=== PATIENT | female | born 1950 | race Caucasian/White ===

== ENCOUNTER 2017-01-22 18:42 | Emergency (ER) | payer MEDICARE, MEDICAID ==
[~2017-01-22] VITALS: Ht 167.6 cm; Wt 84.6 kg
[~2017-01-22 18:42] MED LIST: ASPI-482 PO; ASPI-612 PO; ATOR10TA PO; ATOR10TA60 PO; BUPR100T8 PO; CEFP200T PO; DARB10SY IJ; FAMO20TA5 PO; FURO-68 PO; HEPA100D36 SQ; INSU100C SQ; INSU100I13 SQ; IPRA3AMP NEB; LACT1CAP8 PO; LEVO175T2 PO; LISI-338 PO; LISI10TA2 PO; LISI5TAB PO; LORA0.5T PO; MELA3TAB2 PO; METO25TA4 PO; Metoprolol Tartrate PO; OMEG1CAP6 PO; ONDA4TAB12 PO; POTA20TA12 PO; VITA1TAB19 PO
--- NOTE | 2017-01-22 18:45 | PHYS DOC ---
Past Medical History Past Medical History: Arthritis, Dementia, Diabetes-Type II, Hypothyroid Additional Past Medical Histor: diabetic neuropathy, chronic kidney disease, metabolic encephalopathy, Past Surgical History: Other Additional Past Surgical Histo: PEG tube in place Alcohol Use: None Drug Use: None Adult General HPI HPI Patient is a 66 year old female presenting to the emergency department for sudden onset headache 1 hour prior to arrival while she was at dialysis. 10 out of 10 headache at the top of her head but denies any associated nausea vomiting vision changes unilateral weakness numbness tingling. She says this is not the worst headache of her life and she does get headaches but this was sudden onset and severe. Patient is nontoxic-appearing and said that her whole dialysis session was not finished. Review of Systems Review of Systems Constitutional: Denies fever or chills [] Eyes: Denies change in visual acuity, redness, or eye pain [] HENT: Denies nasal congestion or sore throat [] Respiratory: Denies cough or shortness of breath [] Cardiovascular: No additional information not addressed in HPI [] GI: Denies abdominal pain, nausea, vomiting, bloody stools or diarrhea [] : Denies dysuria or hematuria [] Musculoskeletal: Denies back pain or joint pain [] Integument: Denies rash or skin lesions [] Neurologic: + headache. No focal weakness or sensory changes [] Current Medications Current Medications Current Medications Medications (Trade) Dose Ordered Sig/Brock Start Time Stop Time Status Last Admin Dose Admin Diphenhydramine HCl (Benadryl) 25 mg 1X ONCE 01/22/17 19:00 01/22/17 19:01 DC 01/22/17 20:04 25 MG Fentanyl Citrate (Fentanyl 2ml Vial) 50 mcg 1X ONCE 01/22/17 19:00 01/22/17 19:01 DC 01/22/17 20:04 50 MCG Prochlorperazine Edisylate (Compazine) 5 mg 1X ONCE 01/22/17 19:00 01/22/17 19:01 DC 01/22/17 20:03 5 MG Allergies Allergies Allergies Coded Allergies Type Severity Reaction Last Updated Verified penicillin Allergy Severe Swelling 04/22/16 Yes Sulfa (Sulfonamide Antibiotics) Allergy Intermediate 04/22/16 Yes codeine Allergy Intermediate Nausea and Vomiting 04/22/16 Yes I S O L A T I O N *CONTACT* Allergy Unknown 05/27/16 Yes Physical Exam Physical Exam Constitutional: Well developed, well nourished, no acute distress, non-toxic appearance. [] HENT: Normocephalic, atraumatic, bilateral external ears normal, oropharynx moist, no oral exudates, nose normal. [] Eyes: PERRLA, EOMI, conjunctiva normal, no discharge. [] Neck: Normal range of motion, no tenderness, supple, no stridor. [] Cardiovascular:Heart rate regular rhythm, no murmur [] Lungs & Thorax: Bilateral breath sounds clear to auscultation [] Abdomen: Bowel sounds normal, soft, no tenderness, no masses, no pulsatile masses. [] Skin: Warm, dry, no erythema, no rash. [] Back: No tenderness, no CVA tenderness. [] Extremities: No tenderness, no cyanosis, no clubbing, ROM intact, no edema. [] Neurologic: Alert and oriented X 3, normal motor function, normal sensory function, no focal deficits noted. [] Current Patient Data Vital Signs Vital Signs Date Time Temp Pulse Resp B/P (MAP) Pulse Ox O2 Delivery O2 Flow Rate FiO2 01/22/17 20:04 22 01/22/17 19:47 60 202/77 (118) 100 Room Air 01/22/17 18:52 98.4 98.4 Lab Values Laboratory Tests Test 01/22/17 19:10 White Blood Count 10.7 x10^3/uL (4.0-11.0) Red Blood Count 4.40 x10^6/uL (3.50-5.40) Hemoglobin 12.6 g/dL (12.0-15.5) Hematocrit 38.0 % (36.0-47.0) Mean Corpuscular Volume 86 fL (79-100) Mean Corpuscular Hemoglobin 29 pg (25-35) Mean Corpuscular Hemoglobin Concent 33 g/dL (31-37) Red Cell Distribution Width 15.6 % (11.5-14.5) H Platelet Count 258 x10^3/uL (140-400) Neutrophils (%) (Auto) 53 % (31-73) Lymphocytes (%) (Auto) 29 % (24-48) Monocytes (%) (Auto) 10 % (0-9) H Eosinophils (%) (Auto) 7 % (0-3) H Basophils (%) (Auto) 1 % (0-3) Neutrophils # (Auto) 5.6 x10^3uL (1.8-7.7) Lymphocytes # (Auto) 3.1 x10^3/uL (1.0-4.8) Monocytes # (Auto) 1.1 x10^3/uL (0.0-1.1) Eosinophils # (Auto) 0.7 x10^3/uL (0.0-0.7) Basophils # (Auto) 0.1 x10^3/uL (0.0-0.2) Sodium Level 137 mmol/L (136-145) Potassium Level 3.7 mmol/L (3.5-5.1) Chloride Level 100 mmol/L (98-107) Carbon Dioxide Level 29 mmol/L (21-32) Anion Gap 8 (6-14) Blood Urea Nitrogen 10 mg/dL (7-20) Creatinine 1.9 mg/dL (0.6-1.0) H Estimated GFR (Cockcroft-Gault) 26.3 BUN/Creatinine Ratio 5 (6-20) L Glucose Level 195 mg/dL (70-99) H Calcium Level 8.4 mg/dL (8.5-10.1) L Magnesium Level 1.7 mg/dL (1.8-2.4) L Total Bilirubin 0.3 mg/dL (0.2-1.0) Aspartate Amino Transferase (AST) 17 U/L (15-37) Alanine Aminotransferase (ALT) 10 U/L (14-59) L Alkaline Phosphatase 116 U/L (46-116) Total Protein 6.4 g/dL (6.4-8.2) Albumin 2.6 g/dL (3.4-5.0) L Albumin/Globulin Ratio 0.7 (1.0-1.7) L Laboratory Tests 01/22/17 19:10 Laboratory Tests 01/22/17 19:10 EKG EKG [] Radiology/Procedures Radiology/Procedures CT HEAD WO CONTRAST History: Sudden onset headache one hour prior to arrival Comparison: May 27, 2016 Technique: Noncontrast [address] images were acquired from the skull base to the vertex. Exposure: One or more of the following individualized dose reduction techniques were utilized for this examination: 1. Automated exposure control 2. Adjustment of the mA and/or kV according to patient size 3. Use of iterative reconstruction technique. Findings: No acute extra-axial or parenchymal hemorrhage is identified. There is no significant intra-axial mass effect, midline shift, or extra-axial fluid collection. The xavier-white differentiation of the major vascular territories is preserved. Ventricular size is stable, proportionate to the sulcal spaces. There is again [id number] supratentorial atrophy. There is again multifocal at least moderate ill-defined low-density of the supratentorial white matter bilaterally. There is again incomplete unification of the posterior arch of C1. The mastoid air cells and the visualized paranasal sinuses are aerated. No acute calvarial abnormality is identified. Impression: 1. No acute intracranial abnormality is identified. 2. There is again generalized supratentorial atrophy. There is again ill-defined low-density of the supratentorial white matter bilaterally probably due to chronic microvascular ischemic disease. 3. Note is again made of incomplete indication of the posterior arch of C1. Electronically signed by: Choco Lugo MD (01/22/2017 8:43 PM) [facility] DICTATED and SIGNED BY: CHOCO LUGO MD DATE: 01/22/172040 Course & Med Decision Making Course & Med Decision Making I strongly recommended doing a lumbar puncture given her classic story for subarachnoid hemorrhage. Patient adamantly refused stating that these hurt and that she will not allow me to do it. I explained why need to do the test to rule out a life-threatening emergency and she verbalizes understanding and accepted the risks of and disability by not doing the test. Patient's pain is almost resolved on reassessment and she says she is feeling better and wants to go home. Given patient appears well with normal vital signs benign physical exam and repeat normal neurologic exam she'll be discharged in stable condition with instructions to follow with her primary care provider in the next 1-2 days and come back to the ER sooner with worsening pain fevers vomiting or other general concerns. Aware and agreeable with plan and verbalized understanding of the above instructions. Dragon Disclaimer Dragon Disclaimer This electronic medical record was generated, in whole or in part, using a voice recognition dictation system. Departure Departure Impression: Primary Impression: Head ache Disposition: 01 HOME, SELF-CARE Condition: GOOD Referrals: TOM STRONG (PCP) Patient Instructions: General Headache Without Cause Problem Qualifiers Primary Impression: Head ache Headache type: unspecified Headache chronicity pattern: acute headache Intractability: not intractable Qualified Codes: R51 - Headache ERIN ELLER DO Jan 22, 2017 18:45
[2017-01-22] MEDS ORDERED: PROCHLORPERAZINE 10 MG/2 ML VIAL. IV ONE (19:00)
[2017-01-22] MEDS ORDERED: fentaNYL PF VIAL 100 MCG/2 ML VIAL IV ONE (19:00)
[2017-01-22] MEDS ORDERED: diphenhydrAMINE 50 MG/ML VIAL IVP ONE (19:00)
[2017-01-22 19:19] LABS: BASO # 0.1 x10^3/uL (0.0-0.2); BASO % 1 % (0-3); EOS % 7 % (0-3); HEMOGLOBIN 12.6 g/dL (12.0-15.5); LYMPH # 3.1 x10^3/uL (1.0-4.8); LYMPH % 29 % (24-48); MEAN CORPUSCULAR HEMOGLOBIN 29 pg (25-35); MEAN CORPUSCULAR HGB CONC 33 g/dL (31-37); MEAN CORPUSCULAR VOLUME 86 fL (79-100); MONO % 10 % (0-9); NEUT % 53 % (31-73); PLATELET COUNT 258 x10^3/uL (140-400); RED CELL DISTRIBUTION WIDTH 15.6 % (11.5-14.5); WHITE BLOOD COUNT 10.7 x10^3/uL (4.0-11.0)
[2017-01-22 19:38] LABS: CALCIUM 8.4 mg/dL (8.5-10.1); CREATININE 1.9 mg/dL (0.6-1.0); GFR 26.3; POTASSIUM 3.7 mmol/L (3.5-5.1)
[2017-01-22 19:43] LABS: ALBUMIN 2.6 g/dL (3.4-5.0); ALBUMIN/GLOBULIN RATIO 0.7 (1.0-1.7); MAGNESIUM 1.7 mg/dL (1.8-2.4); TOTAL BILIRUBIN 0.3 mg/dL (0.2-1.0); TOTAL PROTEIN 6.4 g/dL (6.4-8.2)
--- NOTE | 2017-01-22 20:47 | RAD ---
CT HEAD WO CONTRAST History: Sudden onset headache one hour prior to arrival Comparison: May 27, 2016 Technique: Noncontrast [address] images were acquired from the skull base to the vertex. Exposure: One or more of the following individualized dose reduction techniques were utilized for this examination: 1. Automated exposure control 2. Adjustment of the mA and/or kV according to patient size 3. Use of iterative reconstruction technique. Findings: No acute extra-axial or parenchymal hemorrhage is identified. There is no significant intra-axial mass effect, midline shift, or extra-axial fluid collection. The xavier-white differentiation of the major vascular territories is preserved. Ventricular size is stable, proportionate to the sulcal spaces. There is again [id number] supratentorial atrophy. There is again multifocal at least moderate ill-defined low-density of the supratentorial white matter bilaterally. There is again incomplete unification of the posterior arch of C1. The mastoid air cells and the visualized paranasal sinuses are aerated. No acute calvarial abnormality is identified. Impression: 1. No acute intracranial abnormality is identified. 2. There is again generalized supratentorial atrophy. There is again ill-defined low-density of the supratentorial white matter bilaterally probably due to chronic microvascular ischemic disease. 3. Note is again made of incomplete indication of the posterior arch of C1. Electronically signed by: Michael Beckford MD (01/22/2017 8:43 PM) [facility]
[2017-01-22] MEDS ORDERED: HYDROcodone/APAP 5/325MG 1 TAB TABLET PO ONE (21:15)
[2017-01-22 21:39] VITALS: BP 170/69
== END 2017-01-22 21:56 | disposition home or self-care (01) ==
LOC: ER 18:42
DX: R51 Headache (principal); M19.90 Unspecified osteoarthritis, unspecified site; F03.90 Unspecified dementia, unspecified severity, without behavioral disturbance, psychotic disturbance, mood disturbance, and anxiety; E11.40 Type 2 diabetes mellitus with diabetic neuropathy, unspecified; E11.22 Type 2 diabetes mellitus with diabetic chronic kidney disease; N18.9 Chronic kidney disease, unspecified; E03.9 Hypothyroidism, unspecified; Z88.0 Allergy status to penicillin; Z99.2 Dependence on renal dialysis; Z93.1 Gastrostomy status; Z88.2 Allergy status to sulfonamides; Z88.5 Allergy status to narcotic agent; Z91.041 Radiographic dye allergy status
CPT/HCPCS: 36415; 70450; 80053; 83735; 85027; 96374; 96375; 99285; C1887; J0780; J1200; J3010